=== PATIENT | male | born 1945 | race Caucasian/White ===

== ENCOUNTER 2019-06-28 13:41 | Emergency (ER) | payer MEDICARE ==
[~2019-06-28] VITALS: Ht 175.3 cm; Wt 104.8 kg
[~2019-06-28 13:41] MED LIST: GLUCOPHAGE1000 MG PO; GLUCOTROL10 MG PO; HYDROCODON-ACE1 EAC7; PRINIVIL20 MG PO
[2019-06-28] MEDS ORDERED: FLOMAX0.4 MG PO (13:49)
[2019-06-28 14:22] LABS: ABSOLUTE EOSINOPHILS 0.2 thou/uL (0.0-0.7); ABSOLUTE LYMPHOCYTES 2.1 thou/uL (0.8-5.3); ABSOLUTE MONOCYTES 0.8 thou/uL (0.0-1.2); ABSOLUTE NEUTROPHILS 7.2 thou/uL (1.6-8.1); BASOPHILS 0.3 %; EOSINOPHILS 1.8 %; HEMATOCRIT 41.5 % (42.0-52.0); HEMOGLOBIN 14.1 gm/dL (14.0-18.0); LYMPHOCYTES 20.5 %; MCH 31.3 pg (26.0-34.0); MCV 92.1 fL (80.0-100.0); MONOCYTES 7.5 %; MPV 7.6 fl. (7.2-11.1); NUCLEATED RBCS 0 /100WBC; PLATELET COUNT* 231 thou/uL (150-400); POLYS 69.9 %; RBC 4.51 mil/uL (4.50-6.00); RDW-CV 13.1 % (10.5-14.5); WBC 10.2 thou/uL (4.0-11.0)
[2019-06-28 14:32] LABS: APTT 27.3 Seconds (25.0-31.3); PROTIME 10.5 Seconds (9.20-11.50)
[2019-06-28 14:38] LABS: ANION GAP 10 mmol/L (7-16); BUN 24 mg/dL (7-18); CALCIUM 8.5 mg/dL (8.5-10.1); CHLORIDE 105 mmol/L (98-107); CO2 26 mmol/L (21-32); CREATININE 1.3 mg/dL (0.6-1.3); GLUCOSE 107 mg/dL (70-99); POTASSIUM 4.1 mmol/L (3.5-5.1); SODIUM 141 mmol/L (136-145)
[2019-06-28 14:43] LABS: ALBUMIN 3.4 g/dL (3.4-5.0); ALKALINE PHOSPHATASE 61 U/L (46-116); SGOT 15 U/L (15-37); SGPT 22 U/L (30-65); TOTAL BILIRUBIN 0.2 mg/dL (<0.1-1.0); TOTAL PROTEIN 6.7 g/dL (6.4-8.2); TROPONIN-I LEVEL <0.06 ng/mL (<0.06)
[2019-06-28 15:27] VITALS: BP 167/87
--- NOTE | 2019-06-29 07:39 | EKG ---
[place] [address] ELECTROCARDIOGRAM REPORT Name: GILDARDO WHALEY [id number] Admission: 06/28/19 Attend Phys: Discharge: 06/28/19 Date of : 49 Report #: [id number] THIS REPORT FOR: //name// [facility] ED Test Date: 2019-06-28 Test Time: 13:44:31 Pat Name: GILDARDO WHALEY Department: Room: Gender: M Merchandise Clerk: CARMEN : 1945 Requested By: Nohelia Lamar Order Number: [id number] MD: Oliver Subramanian Measurements Intervals [place] Rate: 86 P: 31 CT: 146 QRS: 74 QRSD: 79 T: 22 QT: 338 QTc: 405 Interpretive Statements Sinus rhythm Atrial premature complex Compared to ECG 06/03/2013 14:07:44 no change Electronically Signed On 06-29-2019 7:39:34 CDT by Oliver Subramanian [email or web address] <ELECTRONICALLY SIGNED> By: Oliver Subramanian MD, [facility] 06/29/19 0739 [id number] Oliver Subramanian MD, FACC /EPI
== END 2019-06-28 15:27 | disposition home or self-care (01) ==
LOC: M.ERS 13:41
PROVIDERS: Family Medicine; Nurse Practitioner Family
DX: R07.89 Other chest pain (principal); F17.210 Nicotine dependence, cigarettes, uncomplicated